=== PATIENT | female | born 1980 | race Caucasian/White ===

== ENCOUNTER 2018-01-01 15:01 | Emergency (ER) | payer MEDICAID ==
[2018-01-01] MEDS ORDERED: Iopamidol 612 MG/ML 100 ML Bottle IVPUSH ONE (15:47)
--- NOTE | 2018-01-01 16:00 | EDM.PDOC ---
ED HPI GENERAL MEDICAL PROBLEM - General Chief Complaint: Respiratory Problem Stated Complaint: Chest discomfort; SOB Time Seen by Provider: 01/01/18 15:07 Source of Information: Reports: Patient, RN, RN Notes Reviewed History Limitations: Reports: No Limitations - History of Present Illness INITIAL COMMENTS - FREE TEXT/NARRATIVE: Patient presents to the ED at [facility] complaining of SOB and chest discomfort. Patient is not sure what her symptoms started. She states she started with an URI around December 17. She was recently in [place] the [place]. She is not sure if the different elevations may have something to do with her symptoms. No focal neurological problems. No N/V/D. Patient states she talked with [facility] and she was advised to come to the ER. Onset: Unknown/Unsure - Related Data Allergies Allergy/AdvReac Type Severity Reaction Status Date / Time No Known Allergies Allergy Verified 01/01/18 15:32 Home Meds: Home Meds Lisdexamfetamine Dimesylate [Vyvanse] 30 mg PO DAILY 01/01/18 [History] Venlafaxine [Effexor] 75 mg PO DAILY 01/01/18 [History] Past Medical History Psychiatric History: Reports: Depression Social & Family History - Tobacco Use Smoking Status *Q: Never Smoker - Alcohol Use Days Per Week of Alcohol Use: 7 Number of Drinks Per Day: 2 Total Drinks Per Week: 14 - Recreational Drug Use Recreational Drug Use: No ED ROS GENERAL - Review of Systems Review Of Systems: See Below Constitutional: Denies: Fever, Chills, Weakness Respiratory: Reports: Shortness of Breath, Cough. Denies: Wheezing, Sputum Cardiovascular: Reports: Chest Pain. Denies: Lightheadedness, Palpitations GI/Abdominal: Denies: Abdominal Pain, Nausea, Vomiting Skin: Reports: No Symptoms Neurological: Reports: No Symptoms. Denies: Dizziness, Headache, Numbness, Paresthesia, Tingling ED EXAM, GENERAL - Physical Exam Exam: See Below Exam Limited By: No Limitations General Appearance: Alert, No Apparent Distress Respiratory/Chest: No Respiratory Distress, Lungs Clear, Normal Breath Sounds Cardiovascular: Normal Peripheral Pulses, Regular Rate, Rhythm, No Edema Peripheral Pulses: 2+: Radial (L), Radial (R) GI/Abdominal: Normal Bowel Sounds, Soft, Non-Tender Extremities: Normal Inspection Neurological: Alert, Oriented, Normal Cognition Skin Exam: Warm, Dry, Intact, Normal Color EKG INTERPRETATION EKG Date: 01/01/18 Time: 16:20 Rhythm: NSR Rate (Beats/Min): 86 Howard: Normal P-Wave: Present QRS: Normal ST-T: Normal QT: Normal NC/PQ Interval: 0.15 Comparison: NA - No Prior EKG EKG Interpretation Comments: 1. Sinus Rhythm 2. Normal ECG Course - Vital Signs Last Recorded V/S: Last Vital Signs Temp 36.7 C 01/01/18 15:10 Pulse 98 01/01/18 15:10 Resp 18 01/01/18 15:10 BP 141/83 H 01/01/18 15:10 Pulse Ox 100 01/01/18 15:10 - Orders/Labs/Meds Orders: Active Orders 24 hr Category Date Time Status EKG 12 Lead [EKG Documentation Completion] [RC] STAT Care 01/01/18 15:38 Active Chest PE [Ang Chest] [CT] Stat Exams 01/01/18 15:39 Taken Labs: Laboratory Tests 01/01/18 01/01/18 01/01/18 Range/Units 15:51 15:51 15:51 WBC 6.4 (4.0-10.0) x10^3/uL RBC 4.11 (4.00-5.50) x10^6/uL Hgb 13.2 (12.0-16.0) g/dL Hct 38.3 (33.0-47.0) % MCV 93.2 H (78.0-93.0) fL MCH 32.1 H (26.0-32.0) pg MCHC 34.5 (32.0-36.0) g/dL RDW Coeff of Shadra 12.8 (10.0-15.0) % Plt Count 345 (130-400) x10^3/uL Neut % (Auto) 71.7 (50.0-80.0) % Lymph % (Auto) 20.8 L (25.0-50.0) % [place] % (Auto) 6.4 (2.0-11.0) % Eos % (Auto) 0.9 (0.0-4.0) % Baso % (Auto) 0.2 (0.2-1.2) % PT 9.8 (9.6-11.4) SEC INR 0.9 L (2.0-3.5) D-Dimer, Quantitative 0.41 (<=0.58) mg/LFEU Sodium 136 (136-145) mmol/L Potassium 3.8 (3.5-5.1) mmol/L Chloride 101 (98-107) mmol/L Carbon Dioxide 25 (21-32) mmol/L Anion Gap 13.8 (10-20) mmol/L BUN 7 (7-18) mg/dL Creatinine 0.6 (0.55-1.02) mg/dL Est Cr Clr Drug Dosing 120.18 mL/min Estimated GFR (MDRD) > 60 Glucose 97 (74-106) mg/dL Calcium 8.3 L (8.5-10.1) mg/dL Corrected Calcium 8.70 (8.5-10.1) mg/dL Total Bilirubin 0.5 (0.2-1.0) mg/dL AST 26 (15-37) U/L ALT 21 (14-59) U/L Alkaline Phosphatase 83 (46-116) U/L Creatine Kinase 71 (26-192) U/L Troponin I < 0.017 (<=0.056) ng/mL Total Protein 7.7 (6.4-8.2) g/dL Albumin 3.5 (3.4-5.0) g/dL Globulin 4.2 Albumin/Globulin Ratio 0.83 Meds: Medications Discontinued Medications Generic Name Dose Route Start Last Admin Trade Name Freq PRN Reason Stop Dose Admin Iopamidol 100 ml 01/01/18 15:47 01/01/18 16:47 Isovue-300 (61%) IVPUSH 01/01/18 15:48 100 ml ONETIME ONE Administration - Radiology Interpretation Free Text/Narrative:: CT/CTA Chest: No PE; enhancing right lobe liver mass; as it would appear there is a history of breast CA. Consider follow up triple phase contrast enhanced CT scan of the abdomen. See scanned report in EMR CT Results Date: 01/01/18 CT Results Time: 17:15 - Re-Assessments/Exams Free Text/Narrative Re-Assessment/Exam: 01/01/18 17:[address] scan discussed with patient. Recommend follow up with PCP for further testing of liver. Patient verbalized understanding. Departure - Departure Time of Disposition: 17:33 Disposition: Home, Self-Care 01 Condition: Good Clinical Impression: Costochondral chest pain, Costochondritis, acute - Discharge Information *PRESCRIPTION DRUG MONITORING PROGRAM REVIEWED*: Not Applicable *COPY OF PRESCRIPTION DRUG MONITORING REPORT IN PATIENT MATTY: Not Applicable Instructions: Costochondritis Referrals: Jenny Lee NP [Ordering Only Provider] - Forms: ED Department Discharge Additional Instructions: 1. Stay well hydrated and rest 2. Relax and take it easy over the next couple dayas 3. May use Tylenol/Advil as needed 4. See Jenny Lee in clinic for follow up 5. Call us with any questions or concerns - Problem List Review Problem List Initiated/Reviewed/Updated: Yes - My Orders Last 24 Hours: My Active Orders 01/01/18 15:38 EKG 12 Lead [EKG Documentation Completion] [RC] STAT 01/01/18 15:39 Chest PE [Ang Chest] [CT] Stat - Assessment/Plan Last 24 Hours: My Active Orders 01/01/18 15:38 EKG 12 Lead [EKG Documentation Completion] [RC] STAT 01/01/18 15:39 Chest PE [Ang Chest] [CT] Stat Assessment:: Costochondritis
[2018-01-01 16:21] LABS: ANION GAP 13.8 mmol/L (10-20); CHLORIDE,CL 101 mmol/L (98-107); SODIUM,NA 136 mmol/L (136-145)
== END 2018-01-01 17:47 | disposition home or self-care (01) ==
LOC: VM.ED 15:01
DX: M94.0 Chondrocostal junction syndrome [Tietze] (principal); F32.9 Major depressive disorder, single episode, unspecified; Z79.899 Other long term (current) drug therapy
CPT/HCPCS: 36415; 71275; 80053; 82550; 84484; 85025; 85379; 85610; 93005; 99284; Q9967